=== PATIENT | male | born 1970 | race African-American/Black ===

== ENCOUNTER 2021-11-23 16:09 | Inpatient (IN) | payer MEDICAID, OTHER ==
[~2021-11-23] VITALS: Ht 182.9 cm; Wt 131.5 kg
[2021-11-23] MEDS ORDERED: IPRATROPIUM BROMIDE (0.02%) 0.5MG/2.5ML NEB HHN STA (16:33)
[2021-11-23] MEDS ORDERED: ALBUTEROL (0.083%) 2.5MG/3ML NEB HHN STA (16:33)
[2021-11-23] MEDS ORDERED: FUROSEMIDE 40MG/4ML VIAL IVP ONE (16:45)
[2021-11-23] MEDS ORDERED: LEVOFLOXACIN 500MG PREMIX 100 ML IV ONE (16:45)
[2021-11-23 17:00] LABS: BASOPHILS % 0.7 % (0.0-2.0); EOSINOPHILS % 2.2 % (0.0-5.0); HEMATOCRIT. 42.1 % (42.0-52.0); HEMOGLOBIN. 13.7 g/dL (14.0-18.0); LYMPHOCYTES % 19.9 % (20.0-50.0); MEAN CORPUSCULAR HEMOGLOBIN 28.5 pg (28.0-32.0); MEAN CORPUSCULAR VOLUME 87.6 fL (80.0-94.0); MEAN PLATELET VOLUME 8.6 fl (7.4-10.4); MONOCYTES % 6.8 % (2.0-8.0); NEUTROPHILS % 70.4 % (40.0-76.0); PLATELET 246 x1000/uL (130-400); RED BLOOD CELL COUNT 4.81 mill/uL (4.7-6.1); RED CELL DISTRIBUTION WIDTH 14.4 % (11.6-14.6)
[2021-11-23 17:04] LABS: CHLORIDE 108 mEq/L (98-107); PROTHROMBIN TIME 10.9 sec (9.6-11.0)
[2021-11-23 17:20] LABS: ETHANOL BLOOD < 10 mg/dL; T4 FREE 1.11 ng/dL (0.76-1.46)
[2021-11-23 17:43] LABS: CLARITY URINE CLEAR (CLEAR); COLOR URINE YELLOW (YELLOW); KETONES URINE NEGATIVE (NEGATIVE); LEUKOCYTE ESTERASE URINE NEGATIVE (NEGATIVE); NITRITE URINE NEGATIVE (NEGATIVE); OCCULT BLOOD URINE NEGATIVE (NEGATIVE); PROTEIN URINE NEGATIVE (NEGATIVE); UROBILINOGEN URINE 0.2 E.U./dL (0.2-1.0)
[2021-11-23] MEDS ORDERED: POTASSIUM CHLORIDE 20MEQ TABLET SR PO ONE (17:45)
[2021-11-23 17:53] LABS: *AMPHETAMINES SCREEN URINE NEGATIVE (NEGATIVE); *BARBITURATES SCREEN URINE NEGATIVE (NEGATIVE); *BENZODIAZEPINES SCREEN URINE NEGATIVE (NEGATIVE); *COCAINE SCREEN URINE NEGATIVE (NEGATIVE); CANNABINOID URINE SCREEN NEGATIVE (NEGATIVE); METHADONE URINE SCREEN NEGATIVE (NEGATIVE); OPIATES URINE SCREEN NEGATIVE (NEGATIVE); PHENCYCLIDINE URINE SCREEN NEGATIVE (NEGATIVE)
[2021-11-23] MEDS ORDERED: MAGNESIUM HYDROXIDE 400MG/5ML 30ML UDC PO PRN (20:15)
[2021-11-23] MEDS ORDERED: IPRATROPIUM/ALBUTEROL 0.5-3(2.5)MG/3ML NEB HHN PRN (20:15)
[2021-11-23] MEDS ORDERED: ZOLPIDEM TARTRATE 5MG TABLET PO PRN (20:15)
[2021-11-23] MEDS ORDERED: MAGNESIUM/ALUMINUM HYDROXIDE/SIMETHICONE 30ML UDC PO PRN (20:15)
[2021-11-23] MEDS ORDERED: DIPHENHYDRAMINE 50MG/ML VIAL IV PRN (20:15)
[2021-11-23] MEDS ORDERED: CLONIDINE 0.1MG TABLET PO PRN (20:15)
[2021-11-23] MEDS ORDERED: ONDANSETRON HCL 4MG/2ML INJ IV PRN (20:15)
[2021-11-23] MEDS ORDERED: ACETAMINOPHEN 325MG TABLET PO PRN ×2 (20:15)
[2021-11-23 22:12] VITALS: BP 141/94
[2021-11-23] MEDS: CARVEDILOL 6.25 MG TABLET PO SCH (23:00)
[2021-11-23] MEDS: POTASSIUM CHLORIDE 20MEQ TABLET SR PO SCH (23:00)
[2021-11-23] MEDS: FAMOTIDINE 20MG TABLET PO SCH (23:01)
[2021-11-23] MEDS: FUROSEMIDE 40MG/4ML VIAL IVP SCH (23:01)
[2021-11-23] MEDS: SODIUM CHLORIDE 0.9% INJ 3ML FLUSH IVF SCH (23:03)
[2021-11-23] MEDS: ENOXAPARIN 40MG/0.4ML SYR SUBCUT SCH (23:03)
[2021-11-24] VITALS: BP 141/94
[2021-11-24 04:00] VITALS: BP 109/77
[2021-11-24] MEDS: SODIUM CHLORIDE 0.9% INJ 3ML FLUSH IVF SCH ×3 (05:53→21:04)
[2021-11-24 06:42] LABS: BASOPHILS % 0.7 % (0.0-2.0); EOSINOPHILS % 3.5 % (0.0-5.0); HEMATOCRIT. 41.1 % (42.0-52.0); HEMOGLOBIN. 13.6 g/dL (14.0-18.0); LYMPHOCYTES % 23.5 % (20.0-50.0); MEAN CORPUSCULAR HEMOGLOBIN 28.7 pg (28.0-32.0); MEAN CORPUSCULAR VOLUME 86.6 fL (80.0-94.0); MEAN PLATELET VOLUME 8.7 fl (7.4-10.4); MONOCYTES % 8.7 % (2.0-8.0); NEUTROPHILS % 63.6 % (40.0-76.0); PLATELET 244 x1000/uL (130-400); RED BLOOD CELL COUNT 4.74 mill/uL (4.7-6.1); RED CELL DISTRIBUTION WIDTH 14.6 % (11.6-14.6)
[2021-11-24 07:20] LABS: CHLORIDE 106 mEq/L (98-107)
[2021-11-24 07:32] LABS: PHOSPHORUS 3.2 mg/dL (2.5-4.9)
[2021-11-24 08:00] VITALS: BP 126/79
[2021-11-24] MEDS: LOSARTAN POTASSIUM 50 MG TABLET PO SCH (08:29)
[2021-11-24] MEDS: CARVEDILOL 6.25 MG TABLET PO SCH ×2 (08:29→20:58)
[2021-11-24] MEDS: FUROSEMIDE 40MG/4ML VIAL IVP SCH ×2 (08:29→21:04)
[2021-11-24] MEDS: POTASSIUM CHLORIDE 20MEQ TABLET SR PO SCH ×3 (08:30→17:41)
[2021-11-24] MEDS: ENOXAPARIN 40MG/0.4ML SYR SUBCUT SCH (08:31)
[2021-11-24 12:00] VITALS: BP 101/63
[2021-11-24] MEDS ORDERED: NALOXONE HCL 0.4MG/ML VIAL IV PRN (12:00)
[2021-11-24] MEDS ORDERED: MORPHINE SULFATE 2 MG/ML CPJ (NOT FOR IM USE) IV PRN (12:00)
[2021-11-24] MEDS: TAMSULOSIN HCL 0.4MG SR CAPSULE PO SCH (12:13)
[2021-11-24 16:00] VITALS: BP 105/57
[2021-11-24] MEDS ORDERED: IOHEXOL-350 100 ML BOTTLE ONE (16:46)
[2021-11-24] MEDS: ENOXAPARIN 150MG/ML SYR SUBCUT SCH (17:42)
[2021-11-24 20:00] VITALS: BP 107/62
[2021-11-24] MEDS: FAMOTIDINE 20MG TABLET PO SCH (21:04)
[2021-11-25] VITALS: BP 107/69
[2021-11-25 04:00] VITALS: BP 122/88
[2021-11-25] MEDS: SODIUM CHLORIDE 0.9% INJ 3ML FLUSH IVF SCH ×3 (05:06→21:11)
[2021-11-25] MEDS: ENOXAPARIN 150MG/ML SYR SUBCUT SCH ×2 (05:06→17:19)
[2021-11-25 07:01] LABS: CHLORIDE 107 mEq/L (98-107)
[2021-11-25 08:00] VITALS: BP 99/62
[2021-11-25] MEDS: CARVEDILOL 6.25 MG TABLET PO SCH ×2 (09:00→20:26)
[2021-11-25] MEDS: FUROSEMIDE 40MG/4ML VIAL IVP SCH ×2 (09:10→20:34)
[2021-11-25] MEDS: POTASSIUM CHLORIDE 20MEQ TABLET SR PO SCH ×3 (09:10→17:18)
[2021-11-25] MEDS: TAMSULOSIN HCL 0.4MG SR CAPSULE PO SCH (09:12)
[2021-11-25] MEDS: LOSARTAN POTASSIUM 50 MG TABLET PO SCH (09:12)
[2021-11-25 12:00] VITALS: BP 115/62
[2021-11-25 16:00] VITALS: BP 115/77
[2021-11-25 20:00] VITALS: BP 108/63
[2021-11-25] MEDS: FAMOTIDINE 20MG TABLET PO SCH (20:34)
[2021-11-26] VITALS: BP 116/74
== END 2021-11-26 00:32 | disposition left against medical advice (07) | DRG 194 ==
LOC: ER 16:09 → 8WST 18:35 → EDBEDREQTM 18:39 → EDBEDREQ 18:39 → EDBEDREQSVC 18:39 → CANRESERV 19:15 → ENRESERV 19:15
PROVIDERS: ADMIT Internal Medicine; ATTEND Internal Medicine
PROC: 4B02XTZ Measurement of Cardiac Defibrillator, External Approach (ICD-10-PCS; principal; 2021-11-25)
DX: I11.0 Hypertensive heart disease with heart failure (principal); I26.99 Other pulmonary embolism without acute cor pulmonale; I82.431 Acute embolism and thrombosis of right popliteal vein; I50.43 Acute on chronic combined systolic (congestive) and diastolic (congestive) heart failure; I42.9 Cardiomyopathy, unspecified; E66.01 Morbid (severe) obesity due to excess calories; E87.6 Hypokalemia; J44.9 Chronic obstructive pulmonary disease, unspecified; F12.90 Cannabis use, unspecified, uncomplicated; Z53.29 Procedure and treatment not carried out because of patient's decision for other reasons; Z68.39 Body mass index [BMI] 39.0-39.9, adult; Z95.810 Presence of automatic (implantable) cardiac defibrillator; Z59.00 Homelessness unspecified; Z82.49 Family history of ischemic heart disease and other diseases of the circulatory system
CPT/HCPCS: 36415; 71045; 71275; 80048; 80053; 80305; 80320; 81003; 83605; 83735; 83880; 84100; 84145; 84439; 84443; 84484; 85025; 93005; 93306; 93970; 94640; 99291; J1650; J1940; J1956; J2270; Q9967; G0480

== ENCOUNTER 2022-06-17 14:34 | Inpatient (IN) | payer MEDICAID ==
[~2022-06-17] VITALS: Ht 182.9 cm; Wt 147.4 kg
[2022-06-17] MEDS ORDERED: FUROSEMIDE 40MG/4ML VIAL IV ONE (15:15)
[2022-06-17 15:57] LABS: CHLORIDE 111 mEq/L (98-107)
[2022-06-17 16:00] LABS: BASOPHILS % 1.2 % (0.0-2.0); EOSINOPHILS % 1.8 % (0.0-5.0); HEMATOCRIT. 40.2 % (42.0-52.0); HEMOGLOBIN. 12.7 g/dL (14.0-18.0); LYMPHOCYTES % 24.5 % (20.0-50.0); MEAN CORPUSCULAR HEMOGLOBIN 26.3 pg (28.0-32.0); MEAN CORPUSCULAR VOLUME 83.1 fL (80.0-94.0); MEAN PLATELET VOLUME 8.8 fl (7.4-10.4); MONOCYTES % 8.4 % (2.0-8.0); NEUTROPHILS % 64.1 % (40.0-76.0); PLATELET 211 x1000/uL (130-400); RED BLOOD CELL COUNT 4.84 mill/uL (4.7-6.1); RED CELL DISTRIBUTION WIDTH 17.5 % (11.6-14.6)
[2022-06-17 16:06] LABS: ETHANOL BLOOD < 10 mg/dL
[2022-06-18] MEDS ORDERED: MORPHINE SULFATE 2 MG/ML CPJ (NOT FOR IM USE) IV PRN (00:15)
[2022-06-18] MEDS ORDERED: IPRATROPIUM/ALBUTEROL 0.5-3(2.5)MG/3ML NEB HHN PRN (00:15)
[2022-06-18] MEDS ORDERED: ZOLPIDEM TARTRATE 5MG TABLET PO PRN (00:15)
[2022-06-18] MEDS ORDERED: GUAIFENESIN 200MG/10ML SUGAR FREE UDC PO PRN (00:15)
[2022-06-18] MEDS ORDERED: CLONIDINE 0.1MG TABLET PO PRN (00:15)
[2022-06-18] MEDS ORDERED: ACETAMINOPHEN 325MG TABLET PO PRN ×2 (00:15)
[2022-06-18] MEDS ORDERED: MAGNESIUM/ALUMINUM HYDROXIDE/SIMETHICONE 30ML UDC PO PRN (00:15)
[2022-06-18] MEDS ORDERED: ONDANSETRON HCL 4MG/2ML INJ IV PRN (00:15)
[2022-06-18] MEDS ORDERED: DIPHENHYDRAMINE 50MG/ML VIAL IV PRN (00:15)
[2022-06-18 01:00] VITALS: BP 117/86
[2022-06-18] MEDS: FUROSEMIDE 40MG/4ML VIAL IVP SCH ×2 (01:12→12:55)
[2022-06-18 05:19] VITALS: BP 126/87
[2022-06-18] MEDS: SODIUM CHLORIDE 0.9% INJ 3ML FLUSH IVF SCH ×3 (05:56→21:50)
[2022-06-18 08:00] VITALS: BP 127/71
[2022-06-18] MEDS: POTASSIUM CHLORIDE 20MEQ TABLET SR PO SCH ×2 (09:11→17:07)
[2022-06-18] MEDS: CARVEDILOL 12.5MG TABLET PO SCH ×2 (09:11→21:00)
[2022-06-18] MEDS: TAMSULOSIN HCL 0.4MG SR CAPSULE PO SCH (09:12)
[2022-06-18] MEDS: ENOXAPARIN 40MG/0.4ML SYR SUBCUT SCH ×2 (09:12→21:50)
[2022-06-18 12:00] VITALS: BP 105/79
[2022-06-18] MEDS ORDERED: METOLAZONE 2.5MG TABLET PO NR (15:00)
[2022-06-18] MEDS ORDERED: NALOXONE HCL 0.4MG/ML VIAL IV PRN (15:00)
[2022-06-18 16:00] VITALS: BP 105/58
[2022-06-18 20:00] VITALS: BP 109/80
[2022-06-18] MEDS: FAMOTIDINE 20MG TABLET PO SCH (21:49)
[2022-06-19] VITALS: BP 102/66
[2022-06-19] MEDS: FUROSEMIDE 40MG/4ML VIAL IVP SCH ×2 (01:00→13:51)
[2022-06-19] MEDS: SODIUM CHLORIDE 0.9% INJ 3ML FLUSH IVF SCH ×3 (06:11→20:50)
[2022-06-19 08:00] VITALS: BP 110/72
[2022-06-19 08:30] LABS: CHLORIDE 104 mEq/L (98-107)
[2022-06-19] MEDS: ENOXAPARIN 40MG/0.4ML SYR SUBCUT SCH ×2 (09:18→20:50)
[2022-06-19] MEDS: POTASSIUM CHLORIDE 20MEQ TABLET SR PO SCH ×2 (09:19→19:12)
[2022-06-19] MEDS: TAMSULOSIN HCL 0.4MG SR CAPSULE PO SCH (09:20)
[2022-06-19] MEDS: CARVEDILOL 12.5MG TABLET PO SCH ×2 (09:21→20:48)
[2022-06-19] MEDS ORDERED: POTASSIUM CHLORIDE 20MEQ TABLET SR PO SCH (09:45)
[2022-06-19] MEDS ORDERED: METOLAZONE 10MG TABLET PO SCH (11:00)
[2022-06-19 12:00] VITALS: BP 103/78
[2022-06-19 16:00] VITALS: BP 109/77
[2022-06-19 20:00] VITALS: BP 104/67
[2022-06-19] MEDS: FAMOTIDINE 20MG TABLET PO SCH (20:48)
[2022-06-20] VITALS: BP 111/69
[2022-06-20] MEDS: FUROSEMIDE 40MG/4ML VIAL IVP SCH (01:07)
[2022-06-20 04:00] VITALS: BP 113/71
[2022-06-20] MEDS: SODIUM CHLORIDE 0.9% INJ 3ML FLUSH IVF SCH (05:39)
[2022-06-20 08:00] VITALS: BP 101/73
[2022-06-20 08:04] LABS: CHLORIDE 101 mEq/L (98-107)
[2022-06-20] MEDS: CARVEDILOL 12.5MG TABLET PO SCH (09:00)
[2022-06-20] MEDS: TAMSULOSIN HCL 0.4MG SR CAPSULE PO SCH (09:35)
[2022-06-20] MEDS: ENOXAPARIN 40MG/0.4ML SYR SUBCUT SCH (09:36)
[2022-06-20] MEDS: POTASSIUM CHLORIDE 20MEQ TABLET SR PO SCH (09:36)
[2022-06-20 10:32] VITALS: BP 101/73
== END 2022-06-20 13:07 | disposition home or self-care (01) | DRG 194 ==
LOC: ER 14:34 → MICUSO 21:57 → EDBEDREQTM 22:00 → EDBEDREQ 22:00 → 7WST 06-18 00:40
PROVIDERS: ADMIT Internal Medicine; ATTEND Internal Medicine
DX: I11.0 Hypertensive heart disease with heart failure (principal); E44.0 Moderate protein-calorie malnutrition; I42.9 Cardiomyopathy, unspecified; I50.23 Acute on chronic systolic (congestive) heart failure; E66.01 Morbid (severe) obesity due to excess calories; R10.9 Unspecified abdominal pain; Z68.41 Body mass index [BMI] 40.0-44.9, adult; Z91.14 Patient's other noncompliance with medication regimen; Z86.711 Personal history of pulmonary embolism; Z59.00 Homelessness unspecified; Z96.659 Presence of unspecified artificial knee joint; Z86.718 Personal history of other venous thrombosis and embolism; Z87.891 Personal history of nicotine dependence
CPT/HCPCS: 36415; 71045; 76705; 80048; 80053; 80320; 83735; 83880; 84100; 84484; 85025; 86850; 86900; 93005; 93306; 93970; 99285; C1893; J1650; J1940; G0480